=== PATIENT | female | born 1960 | race American Indian/Alaskan Native ===

== ENCOUNTER 2016-02-18 15:01 | Emergency (ER) | payer SELFPAY ==
[2016-02-18 15:14] VITALS: BP 130/101
--- NOTE | 2016-02-22 13:52 | ED Elopement Review ---
ED Pt Elopement review - Call Back decision Pt Call Back Decision: No action required
== END 2016-02-18 15:24 | disposition left against medical advice (07) ==
LOC: ED 15:01
DX: R07.9 Chest pain, unspecified (principal); Z53.21 Procedure and treatment not carried out due to patient leaving prior to being seen by health care provider